=== PATIENT | female | born 1945 | race Caucasian/White ===

== ENCOUNTER 2016-02-13 06:32 | Outpatient (CLI) | payer MEDICARE ==
[~2016-02-13] VITALS: Ht 160 cm; Wt 77.3 kg
--- NOTE | ~2016-02-13 | HEMODYNAMI ---
PATIENT:ESTEE BLAND MEDICAL RECORD: [id number] : 45 LOCATION:[facility] ADMISSION DATE: 02/13/16 Generatedon:02/13/20169:18 Patient name: ESTEE BLAND Patient #: [id number] : 1945 Date of study: 02/13/2016 Page: Of Hemodynamic Procedure Report Patient Data Patient Demographics Procedure consent was obtained First Name: ESTEE Gender: Female Last Name: BALDO : 1945 Middle Initial: LJ Age: 71 year(s) Patient #: [id number] Race: SSN: [id number] Additional ID: [id number] Contact details Address: [address] [place] [address] [address] State: [place] City: [place] Zip code: [address] Past Medical History History of disease Date Diagnosis Comments CAD Allergies Allergen Reaction Date Comments Reported Other allergy 02/09/2016 codeine Codeine 02/13/2016 Admission Admission Data Admission Date: 02/13/2016 Admission Time: 6:32 Admit Source: Other Height (in.): 63 BSA: 1.8 (m2) Height (cm.): 160.02 BMI: 30.11 (kg/m2) Weight (lbs.): 170 Weight (kg.): 77.11 Lab Results Lab Result Date: 02/13/2016 Lab Result Time: 0:00 Biochemistry Name Units Result Min Max BUN mg/dl 14 --(--*-)-- 7 18 Creatinine mg/dl 0.8 --(-*--)-- 0.6 1.3 CBC Name Units Result Min Max Hemoglobin g/dl 14.1 --(*---)-- 13.5 17.5 Procedure Procedure Types Cath Procedure Diagnostic Procedure FFR/IVUS Intra-Coronary IVUS Initial PCI Procedure Coronary Stent Initial Procedure Description Procedure Date Procedure Date: 02/13/2016 Procedure Start Time: 8:59 Procedure End Time: 9:17 Procedure Staff Name Function Refugio Watkins MD Performing Physician Ellen Burrell RN Nurse Josh Moore RT Scrub Sandra Alberto RT Monitor Abundio Burger RT Senior Technical Program Manager Procedure Data Cath Procedure Fluoroscopy Diagnostic fluoroscopy Total fluoroscopy Time: 2.9 time: 2.9 min min Diagnostic fluoroscopy Total fluoroscopy dose: 283 dose: 283 mGy mGy Contrast Material Contrast Material Type Amount (ml) Isovue 370 43 Entry Location Entry Primary Successful Side Size Upsize Upsize Entry Closure Succes sful Closure Location (Fr) 1 (Fr) 2 (Fr) Remarks Device Remarks Femoral Left 6 Fr Exoseal EXOSEAL artery Short DID NOT DEPLOY Procedure Complications No complications Procedure Medications Medication Administration Route Dosage Oxygen NC 2 l/min Heparin Flush Bag added to field 2 bags (1000units/500ml NS) Lidocaine 2% added to field 20 Benadryl I.V. 50 mg Versed I.V. 1 mg Fentanyl I.V. 50 mcg Versed I.V. 1 mg Fentanyl I.V. 50 mcg Fentanyl I.V. 50 mcg Heparin Bolus I.V. 4000 units Fentanyl I.V. 50 mcg Hemodynamics Rest BSA: 1.8 (m2) HGB: 14.1 (g/dl) O2 Consumption: Estimated: 168.99 (ml/min) O2 Con sumption indexed: Estimated:93.88 (ml/min/m) Heart Rate: 75 (bpm) Snapshots Pre Cath Intra NCS Post Cath Vital Signs Time Heart Resp SPO2 NIBP (mmHg) Rhythm Pain Sedation Rate (ipm) (%) Status Level (bpm) 8:21:40 74 16 95 147/84(111) Paced 0 (11) 10(A) , No pain 8:25:54 73 16 95 139/87(104) Paced 0 (11) 10(A) , No pain 8:30:10 71 15 97 135/73(97) Paced 0 (11) 10(A) , No pain 8:34:16 76 16 95 95/54(72) Paced 0 (11) 10(A) , No pain 8:38:21 75 16 95 98/50(68) Paced 0 (11) 10(A) , No pain 8:42:29 73 16 95 81/50(75) Paced 0 (11) 10(A) , No pain 8:46:29 72 16 96 91/50(75) Paced 0 (11) 10(A) , No pain 8:50:33 71 16 98 82/52(78) Paced 0 (11) 10(A) , No pain 8:54:35 70 16 98 88/50(69) Paced 0 (11) 10(A) , No pain 8:58:42 68 16 98 88/42(68) Paced 0 (11) 9(A) , No pain 9:03:33 74 16 97 131/70(89) Paced 0 (11) 9(A) , No pain 9:07:45 75 18 97 102/73(97) Paced 0 (11) 9(A) , No pain 9:12:34 77 16 97 134/88(106) Paced 0 (11) 9(A) , No pain 9:16:46 97 141/77(104) Paced 0 (11) 9(A) , No pain Medications Time Medication Route Dose Verified Delivered Reason Notes Effectiveness by by 8:28:21 Oxygen NC 2 Refugio Ellen Per physician l/min June Burrell RN 8:28:29 Heparin Flush added 2 Refugio Refugio used for Bag to bags June Watkins MD procedure (1000units/500ml field NS) 8:28:35 Lidocaine 2% added 20ml Refugio Refugio used for to vial June Watkins MD procedure field 8:28:44 Benadryl I.V. 50 mg Refugio Ellen Per physician June Burrell RN 8:51:00 Versed I.V. 1 mg Refugio Ellen for sedation June Burrell RN 8:51:30 Fentanyl I.V. 50 Refugio Ellen for sedation mcg June Burrell RN 8:54:11 Versed I.V. 1 mg Refugio Ellen for sedation June Burrell RN 8:54:15 Fentanyl I.V. 50 Refugio Ellen for sedation mcg June Burrell RN 8:56:17 Fentanyl I.V. 50 Refugio Ellen for sedation mcg June Burrell RN 8:58:07 Fentanyl I.V. 50 Refugio Ellen for sedation mcg June Burrell RN 9:01:00 Heparin Bolus I.V. 4000 Refugio Ellen for dose units Tauth MD Indra RN anticoagulation verified wtih dr watkins Procedure Log Time Note 7:59:51 Admit Source: Other 8:00:49 ACC Patient presents with Unstable Angina CCS Anginal Class 2--Slight limitation of ordinary activity. 8:00:54 Diagnostic Cath status Elective 8:01:02 Abundio Burger RT(R) sent for patient. Start room use. 8:20:23 Time tracking: Regular hours 8:20:28 Plan of Care:Hemodynamics will remain stable., Cardiac rhythm will remain stable., Comfort level will be maintained., Respiratory function will remain adequate., Patient/ family verbilizes understanding of procedure., Procedure tolerated without complication., Recovers from procedure without complications.. 8:20:32 Patient received from Outpatients to [facility] 1 Alert and oriented. Tansferred to table in Supine position. 8:20:33 Warm blankets applied, and dave hugger turned on for patient comfort. 8:20:33 Correct patient and procedure confirmed by team. 8:20:34 Signed procedure consent form obtained from patient. 8:20:35 ECG and BP/O2 sat monitors applied to patient. 8:20:37 Full Disclosure recording started 8:20:37 Vital chart was started 8:23:15 Baseline sample Acquired. 8:23:18 Rhythm: paced 8:23:35 H&P Date Dictated: 02/13/2016 Within 30 days and on chart., H&P Addendum completed by physician on day of procedure. (MUST COMPLETE FOR ALL OUTPATIENTS). 8:23:41 Pre-procedure instructions explained to patient. 8:23:41 Pre-op teaching completed and patient verbalized understanding. 8:23:44 Family in waiting room. 8:23:46 Patient NPO since Midnight. 8:24:01 Patient allergic to Codeine 8:24:05 Is the patient allergic to Iodine/contrast media? No. 8:24:08 Is patient on blood thinner?Yes 8:24:12 ACC The patient was administered the following blood thiners within the last 24 hours: ACCPlavix 8:26:47 Patient diabetic? No. 8:26:50 ----Pre-sedation anethsthesia assessment.---- 8:26:52 Previous problem with sedation/anesthesia? No ? 8:26:54 Snore? No 8:26:58 Sleep apnea? No 8:27:00 Deviated septum? No 8:27:02 Opens mouth fully? Yes 8:27:03 Sticks out tongue? Yes 8:27:05 Airway obstruction? No ? 8:27:07 Dentures? No ? 8:27:10 Pre procedure: left dorsailis pedis pulse 1+ Palpable, but thready & weak; easily obliterated 8:27:13 Patient pain scale 0/10 ?. 8:27:25 IV patent on arrival in left hand with 0.9% NaCl at 10ml/hr. 8::49 Lab Result : BUN 14 mg/dl 8::49 Lab Result : Hemoglobin 14.1 g/dl 8::49 Lab Result : Creatinine 0.8 mg/dl 8::53 Lab results completed and on chart. 8:28:14 Left groin area was prepped with chlora-prep and draped in sterile fashion 8:28:17 Alarms reviewed by R. N. 8:28:17 Sharps counted by scrub and verified by R.N. 8:28:19 Physician paged 8:28:21 Oxygen 2 l/min NC was given by Ellen Burrell RN; Per physician; 8:28:29 Heparin Flush Bag (1000units/500ml NS) 2 bags added to field was given by Refugio Watkins MD; used for procedure; 8:28:35 Lidocaine 2% 20ml vial added to field was given by Refugio Watkins MD; used for procedure; 8:28:44 Benadryl 50 mg I.V. was given by Ellen Burrell RN; Per physician; 8:31:54 Zero performed for pressure channel P1 8:32:54 Patient Height : 160.02 cm 8:32:58 Patient Weight : 77.11 kg 8:50:44 --------ALL STOP TIME OUT------ 8:50:45 Final Timeout: patient, procedure, and site verified with staff and physician. All members of the team are in agreement. 8:50:47 Left groin site verified by team. 8:50:49 Physical assessment completed. ASA score P 2 - A patient with mild systemic disease as per Refugio Watkins MD. 8:50:53 Sedation plan: IV Moderate Sedation Versed, Fentanyl 8:51:00 Versed 1 mg I.V. was given by Ellen Burrell RN; for sedation; 8:51:05 Use device set Femoral PCI 8:51:30 Fentanyl 50 mcg I.V. was given by Ellen Burrell RN; for sedation; 8:54:11 Versed 1 mg I.V. was given by Ellen Burrell RN; for sedation; 8:54:15 Fentanyl 50 mcg I.V. was given by Ellen Burrell RN; for sedation; 8:56:06 Acist Syringe opened to sterile field. 8:56:06 Acist Hand Control opened to sterile field. 8:56:07 Bag Decanter opened to sterile field. 8:56:07 Cardinal Cath Pack opened to sterile field. 8:56:08 Terumo 6Fr [place] Sheath opened to sterile field. 8:56:09 St Monster 260cm J .035 wire opened to sterile field. 8:56:09 Merit BasixCompak Inflation Kit opened to sterile field. 8:56:10 Acist Manifold opened to sterile field. 8:56:11 Tegaderm 4 x 4 opened to sterile field. 8:56:13 Thorne Whisper J 300cm 0.014 guide wire opened to sterile field. 8:56:13 [place]ag[place] IVUS Catheter opened to sterile field. 8:56:14 Medtronic Launcher 6Fr HS I guide catheter opened to sterile field. 8:56:17 Fentanyl 50 mcg I.V. was given by Ellen Burrell RN; for sedation; 8:56:32 Procedure type changed to Cath procedure, Diagnostic procedure, FFR/IVUS, Intra-Coronary IVUS Initial, PCI procedure, Coronary Stent Initial 8:58:07 Fentanyl 50 mcg I.V. was given by Ellen Burrell RN; for sedation; 8:59:02 Procedure started. 8:59:09 Local anesthetic to left femerol artery with Lidocaine 2% by Refugio Watkins MD.INITIAL ACCESS ONLY 8:59:16 A 6 Fr Short sheath was inserted into the Left Femoral artery 8:59:31 6 Fr HS 1 guide catheter was inserted over the wire 8:59:43 WHISPER wire advanced. 9:01:00 Heparin Bolus 4000 units I.V. was given by Ellen Burrell RN; for anticoagulation; dose verified [facility] dr watkins 9:01:18 FFR/IVUS 9::18 IVUS catheter advanced over wire. 9:01:21 IVUS pass to RCA lesion performed. 9:05:35 IVUS catheter removed over wire. 9:06:09 ACC PCI Site: mRCA has 75% stenosis. 9:06:12 ACC Pre-intervention SARA Flow is 3. 9:07:54 Inflation Number: 1 A Akonni Biosystemstronic Integrity 4.0 X 30 stent was prepped and advanced across the Mid RCA. The stent was deployed at 17 DUC for 0:12 (min:sec). 9:08:10 Stent catheter was removed intact over wire. 9:08:10 Wire removed. 9:08:11 Guide catheter removed. 9:08:15 Contrast amount:Isovue 370 43ml. 9:08:40 Sheath removed intact; hemostasis achieved with Exoseal to the Left Femoral artery. 9:10:17 Procedure ended.(Physican Out) 9:10:51 Fluoroscopy time 02.90 minutes. 9:10:54 Fluoroscopy dose: 283 mGy 9:10:54 Flurop Dose total: 283 9:10:56 Sharps counted by scrub and verified by R.N. 9:11:11 St Monster Femstop Arch Gold opened to sterile field. 9:12:10 Insertion/operative site no bleeding no hematoma. 9:12:13 Post-op/insertion site Left Femoral artery dressed using a 4 x 4 and Tegaderm. 9:14:05 Post left femerol artery:stable 9:14:06 Post Procedure Pulses reassessed and unchanged 9:16:01 Procedure and supply charges have been captured, reviewed, submitted and are correct. 9:17:08 Cordis 6Fr Exoseal opened to sterile field. 9:17:19 Procedure Complication : No complications 9:17:21 Vital chart was stopped 9:17:22 See physician's report for complete and final results. 9:17:25 Report given to Post Procedure Room. 9:17:28 Patient transfered to Post Procedure Room with Stretcher. 9:17:30 Procedure ended. 9:17:30 Full Disclosure recording stopped 9:17:38 End room use (Document Last) Intervention Summary Intervention Notes Time ActionType Lesion and Equipment Action# Pressure Duration Attributes Used 9:07:54 Place stent Mid RCA Medtronic 1 17 00:12 Integrity 4.0 X 30 stent Device Usage Item Name Manufacture Quantity Catalog Hospital Part Current Minimal Lot# / Number Charge Number Stock Stock Serial# Code Acist Acist 1 01596 394236 723574 594954 20 Syringe Medical Systems Inc Acist Hand Acist 1 52450 687796 847299 224982 5 Control Medical Systems Inc Bag Microtek 1 2002S 729456 51360 783421 5 Decanter Medical Inc. Cardinal Cardinal 1 [id number] 833821 42603 057675 5 Cath Pack Health Terumo 6Fr Terumo 1 [id number] 736554 261930 770982 [address] Monster 1 474840 544617 445854 011677 30 260cm J .035 wire Merit Merit 1 CM1250 527153 833589 088768 15 BasixCompak Medical Inflation Kit Acist Acist 1 22225 116729 696495 581470 5 Manifold Medical Systems Inc Tegaderm 4 3M 1 1626W 790185 042421 787774 5 x 4 Thorne Thorne 1 [id number] 713385 714236 258734 5 Whisper J Vascular 300cm 0.014 guide wire [place] 1 [id number] 864733 286808 335797 8 [place] Eagleye IVUS Catheter Medtronic Medtronic 1 [id number] 156550 96674 189317 1 Launcher 6Fr HS I guide catheter Medtronic Medtronic 1 [id number] 994332 679803 853916 9 [id number] Integrity 4.[address] Monster 1 [id number] 009142 845340 930681 5 Femstop Arch Gold Cordis 6Fr Cardinal 1 EX600 470164 160193 374923 10 brick&mobile Signature Audit [place] Stage Time Signature Unsigned Intra-Procedure 02/13/2016 Josh Moore 9:17:59 AM RT(R) Signatures Monitor : Sandra Alberto Signature : RT Date : Time : [facility] [address] [place] [address]
[~2016-02-13 06:32] MED LIST: BAYER CHEWABLE81 MG PO; BIOTIN5 MG PO; CO Q-1030 MG; COZAAR50 MG PO; HYDROCHLOROTHIA25 MG PO; HYDROCODONE-APA1 TAB PO; KLOR-CON 88 MEQ; MULTIPLE VITAMI1 TA1 PO; PLAVIX75 MG PO; PROBIOTIC1 EAC1 PO; SYNTHROID75 MCG PO
[2016-02-13 07:56] LABS: BASOPHILS 0.4 % (0.0-2.0); EOSINOPHILS 4.3 % (0-7); HEMATOCRIT 41.4 % (36.0-48.0); HEMOGLOBIN 14.1 g/dL (12-16); IMMATURE GRANULOCYTES 0.2 % (0-5); LYMPHOCYTES 19.1 % (15-50); MCH 29.9 pg (26.0-34.0); MCHC 34.1 g/dL (31.0-37.0); MCV 87.7 fL (80.0-100.0); MEAN PLATELET VOLUME 9.3 fL (7.4-10.4); MONOCYTES 10.3 % (2-11); NEUTROPHILS 65.7 % (40-80); PLATELET COUNT 279 10x3/uL (130-400); RBC 4.72 10x6/uL (4.00-5.40); RDW 13.6 % (11.5-14.5); WBC 10.8 10x3/uL (4.8-10.8)
[2016-02-13 07:57] VITALS: BP 139/83; Ht 160 cm; Wt 77.3 kg
[2016-02-13 08:02] LABS: CALC OSMOLALITY 271 mosm/kg (275-300); CALCIUM 9.1 mg/dL (8.5-10.1); CARBON DIOXIDE 27.3 mmol/L (21.0-32.0); CHLORIDE - SERUM 98 mmol/L (98-107); CREATININE - SERUM 0.8 mg/dL (0.6-1.3); GLUCOSE 117 mg/dL (74-106); POTASSIUM - SERUM 3.5 mmol/L (3.5-5.1); SODIUM 135 mmol/L (136-145); UREA NITROGEN 14 mg/dL (7-18); eGFR NON AFRICAN AMERICAN 75 mL/min (90-120)
--- NOTE | 2016-02-13 09:47 | NUR ---
HR 68 BP 126/67 CHEST PAIN IS DENIED ALERT AND ORIENTED TALKING TO FAMILY AT SIDE NAUSEA DENIED. 6 FR VASCADE L/GROIN WITH FEMSTOP IN PLACE CDI NO BLEEDING NO HEMATOMA NOTED. PULSES PRESENT. INSTRUCTED PATIENT TO KEEP LLE STRAIGHT WITH HEAD FLAT ON PILLOW
--- NOTE | 2016-02-13 10:00 | NUR ---
VSS WITH CHEST PAIN DENIED TOLERATING ORAL FLUIDS WITH NAUSEA DENIED. FEMSTOP TO L/GROIN CDI NO BLEEDING NO HEMATOMA NOTED. INSTRUCTED PATIENT TO KEEP HEAD FLAT ON PILLOW WITH LLE STRAIGHT 1030 VOICED NO CHEST PAIN WITH VSS FEMSTOP TO L/GROIN CDI NO BLEEDING NO HEMATOMA NOTED FAMILY AT SIDE
--- NOTE | 2016-02-13 11:00 | NUR ---
VAGAL RESPONSE FROM FEMSTOP WITH PRESSURE DECREASED TO FEMSTOP. MONITOR CLOSE. 1115 FEMSTOP REMOVED WITH VSS L/GROIN CDI NO BLEEDING NO HEMATOMA NOTED
--- NOTE | 2016-02-13 11:33 | NUR ---
L/GROIN CDI NO BLEEDING NO HEMATOMA NOTED VSS WITH CHEST PAIN DENIED WILL MONITOR
--- NOTE | 2016-02-13 12:06 | NUR ---
SLEEPING QUIETLY WITH VSS NO DISTRESS NOTED. 6 FR EXOSEAL L/GROIN CDI NO BLEEDING NO HEMATOMA NOTED.
--- NOTE | 2016-02-13 12:39 | NUR ---
CONTINUES TO SLEEP WITH NO DISTRESS L/GROIN CDI NO BLEEDING NO HEMATOMA NOTED
--- NOTE | 2016-02-13 13:32 | NUR ---
PATIENT VOIDS 300 CC CLEAR YELLOW URINE TO COLLECTION JENNIFER CARE PROVIDED. L/GROIN CDI NO BLEEDING NO HEMATOMA NOTED
--- NOTE | 2016-02-13 14:00 | NUR ---
1400 CHEST PAIN DENIED WITH VSS L/GROIN CDI NO BLEEDING NO HEMATOMA NOTED FAMILY AT SIDE 1430 REPOSITIONED TO SITTING WITH HOB UP 30 DEGREES. SANDWICH AND SODA TO BEDSIDE FAMILY TO ASSIST. L/GROIN REMAINS CDI
--- NOTE | 2016-02-13 15:00 | NUR ---
PIV REMOVED FROM LEFT ARM WITH DRESSING APPLIED. VSS L/GROIN CDI NO BLEEDING NO HEMATOMA NOTED PATIENT UP TO GET DRESSED WITH FAMILY AT SIDE
--- NOTE | 2016-02-13 15:24 | NUR ---
DISCHARGE INSTRUCTIONS GONE OVER WITH PATIENT AND FAMILY ALL VERBALIZED UNDERSTANDING. TRANSPORTED VIA TO [facility] TO [facility] HOME. L/GROIN REMAINS CDI WITH CHEST PAIN DENIED
--- NOTE | 2016-02-15 16:23 | HP ---
PATIENT: ESTEE BLAND MEDICAL RECORD: [id number] ACCOUNT: [id number] LOCATION:[facility] : 45 ADMISSION DATE: 02/13/16 HISTORY AND PHYSICAL EXAMINATION ADMITTING DIAGNOSES: 1. Angina. 2. Coronary artery disease. 3. Recent percutaneous transluminal coronary angioplasty stent of the left anterior descending with concomitant disease of the coronary artery. 4. Hypertension. 5. Hyperlipidemia. HISTORY OF PRESENT ILLNESS: Mrs. Bland presented with unstable anginal symptomatology, found to have 2-vessel coronary artery disease, underwent successful PTCA stent of the LAD. She is now brought back for PTCA stent of the RCA. PHYSICAL EXAMINATION: GENERAL APPEARANCE: Well-nourished, well-developed, appears stated age. Level of distress, comfortable. PSYCHIATRIC: Mental status, alert, normal affect. Orientation, oriented to time, place and person. EYES: Lids and conjunctiva, noninjected. No discharge, no pallor. ENT: Lips, teeth, gums, normal dentition. Oropharynx, no cyanosis, no pallor. NECK: Carotid arteries, bilateral normal upstroke, no bruits, no thrills. JUGULAR VEINS: No jugular venous pressure or distention. CERVICAL LYMPH NODES: Nontender, nonenlarged. THYROID: Not enlarged. Nontender. No nodules. LUNGS: Respiratory effort, unlabored. CHEST: Normal curvature. No thoracic deformity. No chest wall tenderness. Percussion, resonant. Auscultation, clear. No wheezes, no rales, no rhonchi. CARDIOVASCULAR: Precordial exam, nondisplaced. No heaves or pericardial thrills. Rate and rhythm, regular. Heart sounds, normal S1, normal S2. No S3, no gallop, no rub. Systolic murmur, not heard. Diastolic murmur, not heard. EXTREMITIES: No cyanosis, no edema. Peripheral pulses, full and equal in all extremities, except as noted. No bruits appreciated. ABDOMEN: Soft, nondistended. Normal aorta. No bruit. Nontender. No masses. Liver, nontender, no hepatomegaly. Spleen, nontender, no splenomegaly. MUSCULOSKELETAL: No joint tenderness. No joint swelling. No erythema. NEUROLOGICAL: Normal gait, normal strength, normal tone. SKIN: Warm and dry. OVERALL IMPRESSION: Anginal symptomatology with significant disease of the right coronary artery. We will proceed with PTCA stent of the right coronary artery. TRANSINT:[id number] Voice Confirmation ID: [id number] DOCUMENT ID: [id number] HISTORY AND PHYSICAL [id number] ESTEE BLAND JEFFREY MD at 1623 CC: [id number] DICTATION DATE: 02/13/16 0855 CLINICAL TRANSPLANT COORDINATOR: 02/13/16 0901 DEP CLI 02/13/[address] [address]
--- NOTE | 2016-04-05 08:46 | OP ---
PATIENT NAME: ESTEE BLAND MEDICAL RECORD: [id number] :45 LOCATION:D.[facility] ADMISSION DATE: SURGEON: ANTONIA JOHNSTON MD DATE OF OPERATION: 02/13/2016 PROCEDURES: 1. PTCA stent RCA. 2. Intravascular ultrasound RCA. 3. Selective coronary angiography. INDICATION: Angina and coronary artery disease. PROCEDURE IN DETAIL: After informed consent was obtained and after detailed explanation of risks, benefits as well as alternative therapies, the patient elected to proceed with angiogram and angioplasty. The right femoral area was prepped and draped in normal sterile fashion. The right femoral artery was cannulated via modified Seldinger technique with placement of 6-Marshallese sheath. All catheters exchanged through this sheath. FINDINGS: The right coronary had a 74% stenosis in the mid vessel confirmed by intravascular ultrasound. This was addressed with a 4.0 x 30 mm Integrity stent. Result was 0% residual stenosis. OVERALL IMPRESSION: Successful percutaneous transluminal coronary angioplasty stent of the right coronary artery going from 74% initial stenosis confirmed by intravascular ultrasound to 0% residual. TRANSINT:[id number] Voice Confirmation ID: [id number] DOCUMENT ID: [id number] ANTONIA JOHNSTON MD at 0846 CC: [id number] DICTATION DATE: 03/27/16 1008 COPYING MACHINE MECHANIC: 03/27/16 1713 DEP CLI 02/13/16 [place] [id number] [place] [address]
== END 2016-02-13 15:26 | disposition home or self-care (01) ==
LOC: D.CATH 06:32
PROVIDERS: Internal Medicine Interventional Cardiology
DX: I25.119 Atherosclerotic heart disease of native coronary artery with unspecified angina pectoris (principal); I10 Essential (primary) hypertension; E78.5 Hyperlipidemia, unspecified; Z95.5 Presence of coronary angioplasty implant and graft

== ENCOUNTER → 2016-03-07 07:26 | Outpatient (CLI) | payer MEDICARE ==
[2016-02-13 07:57] VITALS: BMI 30.1
== END | disposition home or self-care (01) ==
LOC: D.RAD 07:26
DX: R11.2 Nausea with vomiting, unspecified (principal); R10.13 Epigastric pain; R12 Heartburn

== ENCOUNTER 2016-03-28 02:48 | Emergency (ER) | payer MEDICARE ==
[2016-02-13 07:57] VITALS: BMI 30.1
[2016-03-28 03:44] LABS: BASOPHILS 0.2 % (0.0-2.0); EOSINOPHILS 2.3 % (0-7); HEMATOCRIT 41.4 % (36.0-48.0); HEMOGLOBIN 13.9 g/dL (12-16); IMMATURE GRANULOCYTES 0.3 % (0-5); LYMPHOCYTES 20.6 % (15-50); MCH 29.1 pg (26.0-34.0); MCHC 33.6 g/dL (31.0-37.0); MCV 86.8 fL (80.0-100.0); MONOCYTES 12.9 % (2-11); NEUTROPHILS 63.7 % (40-80); PLATELET COUNT 312 10x3/uL (130-400); RBC 4.77 10x6/uL (4.00-5.40); RDW 13.2 % (11.5-14.5); WBC 10.5 10x3/uL (4.8-10.8)
[2016-03-28 03:58] LABS: ALBUMIN 3.4 g/dL (3.4-5.0); ALKALINE PHOSPHATASE 59 U/L (46-116); ALT (SGPT) 30 U/L (10-68); BILIRUBIN - TOTAL 0.34 mg/dL (0.2-1.3); CALC OSMOLALITY 272 mosm/kg (275-300); CALCIUM 9.3 mg/dL (8.5-10.1); CARBON DIOXIDE 28.6 mmol/L (21.0-32.0); CHLORIDE - SERUM 99 mmol/L (98-107); CREATININE - SERUM 0.8 mg/dL (0.6-1.3); GLUCOSE 116 mg/dL (74-106); POTASSIUM - SERUM 3.6 mmol/L (3.5-5.1); PROTEIN - SERUM 7.9 g/dL (6.4-8.2); SODIUM 136 mmol/L (136-145); UREA NITROGEN 12 mg/dL (7-18); eGFR NON AFRICAN AMERICAN 75 mL/min (90-120)
[2016-03-28 04:07] LABS: CREATINE KINASE 122 UL (21-215); MAGNESIUM - SERUM 1.9 mg/dL (1.8-2.4); PRO BNP 117 pg/mL (0-125)
[2016-03-28 04:08] LABS: TROPONIN-I < 0.017 ng/mL (0.000-0.060)
== END 2016-03-28 04:52 | disposition home or self-care (01) ==
LOC: D.ER 02:48
PROVIDERS: Emergency Medicine
DX: R06.00 Dyspnea, unspecified (principal); K21.9 Gastro-esophageal reflux disease without esophagitis; I10 Essential (primary) hypertension; G47.00 Insomnia, unspecified; Z95.0 Presence of cardiac pacemaker; R00.0 Tachycardia, unspecified

== ENCOUNTER 2017-03-15 08:53 | Emergency (ER) | payer MEDICARE ==
[2016-02-13 07:57] VITALS: BMI 30.1
== END 2017-03-15 09:50 | disposition home or self-care (01) ==
LOC: D.ER 08:53
DX: L25.5 Unspecified contact dermatitis due to plants, except food (principal); I10 Essential (primary) hypertension; Z95.0 Presence of cardiac pacemaker

== ENCOUNTER 2017-07-29 09:56 | Emergency (ER) | payer MEDICARE ==
[~2017-07-29] VITALS: Ht 160 cm; Wt 73.2 kg
[2017-07-29 10:02] VITALS: Ht 160 cm; Wt 73.2 kg
[2017-07-29] MEDS ORDERED: NORCO 7.5/325 T1 TA1 PO (11:14)
[2017-07-29 14:09] VITALS: BP 129/69
== END 2017-07-29 13:56 | disposition home or self-care (01) ==
LOC: D.ER 09:56
DX: S43.004A Unspecified dislocation of right shoulder joint, initial encounter (principal); W19.XXXA Unspecified fall, initial encounter; Y93.89 Activity, other specified; Y92.012 Bathroom of single-family (private) house as the place of occurrence of the external cause; I10 Essential (primary) hypertension

== ENCOUNTER → 2017-12-17 12:20 | Outpatient (CLI) | payer MEDICARE ==
[2017-07-29 10:02] VITALS: BMI 28.5
--- NOTE | ~2017-12-17 | EC ---
PATIENT:ESTEE BLAND DATE OF SERVICE: 12/17/17 SEX: F MEDICAL RECORD: [id number] DATE OF : 45 LOCATION:D[facility] AGE OF PATIENT: 72 ADMISSION DATE: 12/17/17 REFERRING PHYSICIAN: INTERPRETING PHYSICIAN: ANTONIA WATKINS MD ECHOCARDIOGRAM REPORT ECHO CHARGES 4 ECHO COMPLETE Date: 12/17/17 CLINICAL DIAGNOSIS: H/O CAD ECHOCARDIOGRAPHIC MEASUREMENTS (adult normal given) AC root (d.<3.7cm) 2.7 cm LV Septum d (<1.2 cm> 1.4 cm Valve Excursion 1.7 cm LV Septum (systole) 1.9 cm Left Atria (s.<4.0cm> 4.2 cm LVPW d(<1.2cm) 1.2 cm RV (d.<2.3cm) 2.7 cm LVPW (sytole) 2.0 cm LV diastole(<5.6CM) 4.7 cm MV E-F(>70mm/sec) cm LV systole 2.8 cm LVOT Diameter 1.7 cm MV exc.(>10mm) cm Est.ejection fraction (50-75%) % DOPPLER: LVIT cm/sec A 86.0 cm/sec E 68.0 cm/sec LA cm/sec RVSP 42.0 mmHg LVOT 100 cm/sec AOP1/2T m/s Asc. Ao 139 cm/sec RVOT cm/sec RA cm/sec PA cm/sec AV Gradient Peak 7.8 mmHg AV Mean 3.7 mmHg AV Area 1.8 cm MV Gradient Peak 5.3 mmHg MV Mean 1.6 mmHg MV Area cm COMMENTS: Chronic Disease Epidemiologist: 1 [place] News Camera Operator: 1 Dr. Watkins TAPE# PACS Pericardial Effusion N DATE OF SERVICE: DATE OF SERVICE: 12/18/2017 FINDINGS: 1. Left ventricular chamber size is within normal limits. Left ventricular systolic function is normal. Overall ejection fraction estimated at 60%. 2. Left atrium is enlarged at 4.2 cm. Right atrium and right ventricular chamber sizes are as well mildly dilated. 3. Valvular structures have normal structure and motion. ECHOCARDIOGRAM REPORT [id number] ESTEE BLAND 4. Doppler interrogation reveals moderate mitral regurgitation, moderate tricuspid regurgitation, no other valvular insufficiency or stenosis. Pulmonary systolic pressure is estimated at 42 mmHg. 5. No evidence of pericardial effusion or left ventricular thrombus. TRANSINT:[id number] Voice Confirmation ID: [id number] DOCUMENT ID: [id number] ANTONIA WATKINS MD at 1059 CC: [id number] DICTATION DATE: 12/18/17 1245 SCALE ATTENDANT: 12/18/17 1312 DEP CLI 12/17/17 [place] [id number] [place] [id number]
[~2017-12-17 12:20] MED LIST changes: +NORCO 7.5/325 T1 TA1 PO
== END | disposition home or self-care (01) ==
LOC: D.ECHO 12:20
DX: Z95.5 Presence of coronary angioplasty implant and graft (principal)

== ENCOUNTER 2018-02-28 15:32 | Outpatient (CLI) | payer MEDICARE, MEDICAID ==
[~2018-02-28] VITALS: Ht 160 cm; Wt 68.6 kg
--- NOTE | 2018-02-28 15:55 | NUR ---
RECIEVED TO ROOM 1208 VIA .
--- NOTE | 2018-02-28 16:34 | NUR ---
INJECTION GIVEN SUBQ TO RUQ. INSTRUCTED TO RETURN TOMORROW FOR NEXT INJECTION. VOICED UNDERSTANDING. SON AT BEDSIDE.
[2018-02-28 16:35] VITALS: BP 148/73; Ht 160 cm; Wt 68.6 kg
--- NOTE | 2018-02-28 16:45 | NUR ---
DC'D HOME WITH SON. ESCORTED TO VEHICLE BY MANAGER DOMESTIC VIA .
== END 2018-02-28 16:45 | disposition home or self-care (01) ==
LOC: D.OPS 15:32 → D.M3 15:32 → D.OPS 16:45
DX: C50.111 Malignant neoplasm of central portion of right female breast (principal); Z01.812 Encounter for preprocedural laboratory examination

== ENCOUNTER 2018-03-01 11:54 | Outpatient (CLI) | payer MEDICARE, MEDICAID ==
[~2018-03-01] VITALS: Ht 160 cm; Wt 68.6 kg
[2018-03-01 12:39] VITALS: BP 153/87; Ht 160 cm; Wt 68.6 kg
--- NOTE | 2018-03-01 12:41 | NUR ---
ASSESSMENT PER FLOW SHEET.VS STABLE. PT IS WITHOUT DISTRESS. MEDS ORDERED. PT WIHTOUT REACTIONS. WILL DC HOME
--- NOTE | 2018-03-01 12:50 | NUR ---
LEFT UNIT VIA WHEELCHAIR WITH FAMILY FOR TRANSPORT HOME
== END 2018-03-01 12:51 | disposition home or self-care (01) ==
LOC: D.OPS 11:54 → D.MS 11:55 → D.OPS 12:51
DX: C50.111 Malignant neoplasm of central portion of right female breast (principal); Z01.812 Encounter for preprocedural laboratory examination

== ENCOUNTER 2018-06-28 06:26 | Emergency (ER) | payer MEDICARE, MEDICAID ==
[~2018-06-28] VITALS: Ht 160 cm; Wt 68.5 kg
[2018-06-28 06:37] VITALS: Ht 160 cm; Wt 68.5 kg
[2018-06-28 07:02] LABS: BASOPHILS 0.4 % (0-2); EOSINOPHILS 4.7 % (0-7); HEMATOCRIT 31.8 % (36.0-48.0); HEMOGLOBIN 10.9 g/dL (12-16); IMMATURE GRANULOCYTES 0.5 % (0-5); LYMPHOCYTES 18.8 % (15-50); MCH 30.3 pg (26.0-34.0); MCHC 34.3 g/dL (31.0-37.0); MCV 88.3 fL (80.0-100.0); MEAN PLATELET VOLUME 8.5 fL (7.4-10.4); MONOCYTES 5.8 % (2-11); NEUTROPHILS 69.8 % (40-80); RDW 17.2 % (11.5-14.5); WBC 5.5 10x3/uL (4.8-10.8)
[2018-06-28 07:03] LABS: PLATELET COUNT 234 10x3/uL (130-400)
[2018-06-28 07:18] LABS: ALBUMIN 3.3 g/dL (3.4-5.0); ALKALINE PHOSPHATASE 45 U/L (46-116); ALT (SGPT) 41 U/L (10-68); CALC OSMOLALITY 273 mosm/kg (275-300); CALCIUM 9.2 mg/dL (8.5-10.1); CARBON DIOXIDE 24.7 mmol/L (21.0-32.0); CHLORIDE - SERUM 100 mmol/L (98-107); CREATININE - SERUM 0.8 mg/dL (0.6-1.3); GLUCOSE 112 mg/dL (74-106); POTASSIUM - SERUM 3.7 mmol/L (3.5-5.1); PROTEIN - SERUM 7.2 g/dL (6.4-8.2); SODIUM 135 mmol/L (136-145); UREA NITROGEN 20 mg/dL (7-18); eGFR NON AFRICAN AMERICAN 74 mL/min (90-120)
[2018-06-28 07:23] LABS: AMYLASE - SERUM 81 U/L (25-115); LIPASE 227 U/L (73-393)
[2018-06-28 07:26] LABS: TROPONIN-I < 0.017 ng/mL (0.000-0.060)
[2018-06-28 07:32] LABS: APPEARANCE CLEAR (CLEAR); BILIRUBIN NEGATIVE (NEGATIVE); COLOR STRAW (YELLOW); GLUCOSE NEGATIVE (NEGATIVE); KETONE NEGATIVE (NEGATIVE); NITRITE NEGATIVE (NEGATIVE); PROTEIN TRACE mg/dL (NEGATIVE); RED CELLS - URINE RARE /hpf (0-5); SPECIFIC GRAVITY 1.005 (1.005-1.020); UROBILINOGEN NORMAL (NORMAL)
[2018-06-28] MEDS ORDERED: ZOFRAN ODT4 MG/UDTAB PO (10:10)
[2018-06-28] MEDS ORDERED: PERCOCET 5-3251 TAB PO (10:10)
[2018-06-28 10:36] VITALS: BP 137/82
== END 2018-06-28 10:37 | disposition home or self-care (01) ==
LOC: D.ER 06:26
PROVIDERS: Emergency Medicine
DX: G89.29 Other chronic pain (principal); R10.9 Unspecified abdominal pain; C50.919 Malignant neoplasm of unspecified site of unspecified female breast; Z79.899 Other long term (current) drug therapy